=== PATIENT | male | born 1970 | race Caucasian/White ===

== ENCOUNTER → 2016-07-29 | Outpatient (REF) | payer BC ==
--- NOTE | 2016-07-29 07:23 | PFTRPT ---
PULMONARY FUNCTION REPORT ORDERING PROVIDER: EVELYN Estrada DATE OF SERVICE: 07/29/16 SPIROMETRY: Excellent technical quality. The forced vital capacity is normal. The FEV1 is in proportion. The obstructive index is, therefore, normal. FLOW VOLUME LOOP: The expiratory limb of the flow volume loop is normal. LUNG VOLUMES: The total lung capacity is normal. The residual volume is generally in proportion. DIFFUSION CAPACITY: The diffusion capacity is normal. HEMOGLOBIN: No hemoglobin is available for correction. AIRWAY MECHANICS: Airways resistance and conductance are normal. IMPRESSION: Normal study. MTDD
== END ==
LOC: M CARPUL 06:57 → EDSTATUS 08:41
PROVIDERS: ATTEND Nurse Practitioner Adult Health
DX: R06.89 Other abnormalities of breathing (principal)

== ENCOUNTER → 2017-02-02 | Outpatient (CLI) | payer BC ==
[2017-02-02 17:04] LABS: ALBUMIN 4.1 GM/DL (3.2-5.2); ALBUMIN/GLOBULIN RATIO 1.17 (1.00-1.93); ALKALINE PHOSPHATASE 76 U/L (45-117); ALT/SGPT 50 U/L (12-78); ANION GAP 7 MEQ/L (8-16); AST/SGOT 17 U/L (15-37); BILIRUBIN,TOTAL 0.5 MG/DL (0.2-1.0); BLOOD UREA NITROGEN 17 MG/DL (7-18); CARBON DIOXIDE LEVEL 28 MEQ/L (21-32); CHLORIDE LEVEL 105 MEQ/L (98-107); CHOLESTEROL LEVEL 206 MG/DL (<200); CREATININE FOR GFR 0.99 MG/DL (0.70-1.30); GLOMERULAR FILTRATION RATE > 60.0 (>60); GLUCOSE, FASTING 85 MG/DL (70-105); POTASSIUM SERUM 4.9 MEQ/L (3.5-5.1); SODIUM LEVEL 140 MEQ/L (136-145); TOTAL PROTEIN 7.6 GM/DL (6.4-8.2); TRIGLYCERIDES LEVEL 123 MG/DL (<150)
== END ==
LOC: M WUC 11:14
PROVIDERS: ATTEND Physician Assistant Medical
DX: E78.5 Hyperlipidemia, unspecified (principal)

== ENCOUNTER → 2017-07-14 | Outpatient (REF) | LOC: M CARPUL 09:12 | DX: Z00.00 Encounter for general adult medical examination without abnormal findings (principal) ==

== ENCOUNTER 2017-07-20 06:03 | Inpatient (IN) | payer BC ==
[2017-07-20 07:08] LABS: BASO % 0.5 % (0.0-1.0); EOS # 0.3 10^3/uL (0.0-0.50); EOS % 3.3 % (0.0-3.0); HEMATOCRIT 47.4 % (42.0-52.0); IMMATURE GRANULOCYTE % 0.5 % (0-3.0); LYMPH # 1.8 10^3/uL (1.5-4.5); MEAN CORPUSCULAR HEMOGLOBIN 32.9 pg (27.0-33.0); MEAN CORPUSCULAR HGB CONC 35.9 g/dl (32.0-36.5); MEAN CORPUSCULAR VOLUME 91.9 fl (80.0-96.0); MONO # 0.7 10^3/uL (0.0-0.8); MONO % 7.8 % (0.0-5.0); NEUTROPHILS # 5.6 10^3/uL (1.8-7.7); NEUTROPHILS % 66.9 % (36.0-66.0); PLATELET COUNT, AUTOMATED 188 10^3/uL (150-450); RED BLOOD COUNT 5.16 10^6/uL (4.30-6.10); RED CELL DISTRIBUTION WIDTH 12.2 % (11.5-14.5); WHITE BLOOD COUNT 8.4 10^3/uL (4.0-10.0)
[2017-07-20 07:31] LABS: NT-PRO BNP 23 PG/ML (<125)
[2017-07-20] MEDS: TELMISARTAN 20 MG TAB PO (07:44)
[2017-07-20 08:04] LABS: ALBUMIN 3.7 GM/DL (3.2-5.2); ALBUMIN/GLOBULIN RATIO 0.95 (1.00-1.93); ALKALINE PHOSPHATASE 69 U/L (45-117); ALT/SGPT 45 U/L (12-78); ANION GAP 6 MEQ/L (8-16); AST/SGOT 20 U/L (7-37); BILIRUBIN,DIRECT 0.1 MG/DL (0.0-0.2); BILIRUBIN,TOTAL 0.4 MG/DL (0.2-1.0); BLOOD UREA NITROGEN 20 MG/DL (7-18); CALCIUM LEVEL 8.8 MG/DL (8.5-10.1); CARBON DIOXIDE LEVEL 25 MEQ/L (21-32); CHLORIDE LEVEL 109 MEQ/L (98-107); CPK CREATINE PHOSPHOKINASE 139 U/L (39-308); GLOMERULAR FILTRATION RATE > 60.0 (>60); GLUCOSE, FASTING 113 MG/DL (70-100); LIPASE 149 U/L (73-393); POTASSIUM SERUM 4.3 MEQ/L (3.5-5.1); SODIUM LEVEL 140 MEQ/L (136-145); TOTAL PROTEIN 7.6 GM/DL (6.4-8.2); TROPONIN I 0.04 NG/ML (< 0.10)
[2017-07-20 08:05] LABS: CK-MB VALUE MASS 2.7 NG/ML (<3.6); MB/CK RELATIVE INDEX 1.94 (< OR =4)
[2017-07-20] MEDS ORDERED: ISOVUE-370 76% 100ML VIAL (Q9967) As Ordered (08:11)
[2017-07-20 08:23] LABS: INR 0.92; PROTHROMBIN TIME 12.4 SECONDS (12.4-14.5)
[2017-07-20 08:24] LABS: PARTIAL THROMBOPLASTIN TIME 28.9 SECONDS (26.8-37.9)
[2017-07-20 10:11] LABS: DRVV SCREEN 36.4 SEC
[2017-07-20 10:16] LABS: PTT LUPUS TYPE ANTICOAG SCREEN 0.9 (0-1.2)
[2017-07-20] MEDS: HEPARIN DRIP 25,000 UNITS in APPROPRIATE DILUENT 1 EA IV (10:47)
[2017-07-20] MEDS: ACETAMINOPHEN TAB 650MG DOSE (2X325MG) PO ×2 (13:34→22:31)
[2017-07-20 14:40] LABS: PARTIAL THROMBOPLASTIN TIME 28.4 SECONDS (26.8-37.9)
[2017-07-20 17:32] LABS: PARTIAL THROMBOPLASTIN TIME 38.2 SECONDS (26.8-37.9)
[2017-07-20] MEDS: HEPARIN SOD (PORCINE) 5000 UNITS/ML VIAL IV (17:57)
[2017-07-21 00:18] LABS: PARTIAL THROMBOPLASTIN TIME 88.5 SECONDS (26.8-37.9)
[2017-07-21] MEDS: HEPARIN DRIP 25,000 UNITS in APPROPRIATE DILUENT 1 EA IV (01:28)
[2017-07-21 06:40] LABS: HEMATOCRIT 48.2 % (42.0-52.0); HEMOGLOBIN 16.6 g/dl (14.0-18.0); MEAN CORPUSCULAR HEMOGLOBIN 31.1 pg (27.0-33.0); MEAN CORPUSCULAR HGB CONC 34.4 g/dl (32.0-36.5); MEAN CORPUSCULAR VOLUME 90.3 fl (80.0-96.0); PLATELET COUNT, AUTOMATED 176 10^3/uL (150-450); RED BLOOD COUNT 5.34 10^6/uL (4.30-6.10); RED CELL DISTRIBUTION WIDTH 12.5 % (11.5-14.5); WHITE BLOOD COUNT 10.4 10^3/uL (4.0-10.0)
[2017-07-21 06:51] LABS: PARTIAL THROMBOPLASTIN TIME 62.8 SECONDS (26.8-37.9)
[2017-07-21] MEDS: HEPARIN SOD (PORCINE) 5000 UNITS/ML VIAL IV ×2 (06:58→20:02)
[2017-07-21 07:03] LABS: ANION GAP 6 MEQ/L (8-16); BLOOD UREA NITROGEN 14 MG/DL (7-18); CALCIUM LEVEL 8.9 MG/DL (8.5-10.1); CARBON DIOXIDE LEVEL 27 MEQ/L (21-32); CHLORIDE LEVEL 109 MEQ/L (98-107); CREATININE FOR GFR 1.07 MG/DL (0.70-1.30); GLOMERULAR FILTRATION RATE > 60.0 (>60); GLUCOSE, FASTING 106 MG/DL (70-100); MAGNESIUM LEVEL 2.2 MG/DL (1.8-2.4); POTASSIUM SERUM 4.5 MEQ/L (3.5-5.1); SODIUM LEVEL 142 MEQ/L (136-145)
[2017-07-21] MEDS: TELMISARTAN 20 MG TAB PO (08:34)
[2017-07-21 13:06] LABS: PARTIAL THROMBOPLASTIN TIME 77.3 SECONDS (26.8-37.9)
[2017-07-21 19:07] LABS: PARTIAL THROMBOPLASTIN TIME 64.3 SECONDS (26.8-37.9)
[2017-07-21] MEDS: FLUTICASONE PROP 0.05% NASAL SPRAY 16 GM (FLONASE) (19:37)
[2017-07-22 00:47] LABS: INR 0.99; PROTHROMBIN TIME 13.2 SECONDS (12.4-14.5)
[2017-07-22 00:49] LABS: PARTIAL THROMBOPLASTIN TIME 112.7 SECONDS (26.8-37.9)
[2017-07-22] MEDS: HEPARIN DRIP 25,000 UNITS in APPROPRIATE DILUENT 1 EA IV ×2 (06:16→17:50)
[2017-07-22 08:06] LABS: HEMOGLOBIN 16.6 g/dl (14.0-18.0); MEAN CORPUSCULAR HEMOGLOBIN 31.4 pg (27.0-33.0); MEAN CORPUSCULAR HGB CONC 35.3 g/dl (32.0-36.5); PLATELET COUNT, AUTOMATED 172 10^3/uL (150-450); RED BLOOD COUNT 5.28 10^6/uL (4.30-6.10); RED CELL DISTRIBUTION WIDTH 12.3 % (11.5-14.5); WHITE BLOOD COUNT 8.7 10^3/uL (4.0-10.0)
[2017-07-22] MEDS: TELMISARTAN 20 MG TAB PO (08:09)
[2017-07-22 08:16] LABS: INR 0.94; PROTHROMBIN TIME 12.7 SECONDS (12.4-14.5)
[2017-07-22 08:18] LABS: PARTIAL THROMBOPLASTIN TIME 81.1 SECONDS (26.8-37.9)
[2017-07-22 08:25] LABS: ANION GAP 8 MEQ/L (8-16); BLOOD UREA NITROGEN 16 MG/DL (7-18); CALCIUM LEVEL 8.7 MG/DL (8.5-10.1); CARBON DIOXIDE LEVEL 22 MEQ/L (21-32); CHLORIDE LEVEL 111 MEQ/L (98-107); GLOMERULAR FILTRATION RATE > 60.0 (>60); GLUCOSE, FASTING 154 MG/DL (70-100); MAGNESIUM LEVEL 2.1 MG/DL (1.8-2.4); POTASSIUM SERUM 4.2 MEQ/L (3.5-5.1); SODIUM LEVEL 141 MEQ/L (136-145)
[2017-07-22 14:24] LABS: PARTIAL THROMBOPLASTIN TIME 76.1 SECONDS (26.8-37.9)
[2017-07-23 05:56] LABS: HEMATOCRIT 45.3 % (42.0-52.0); HEMOGLOBIN 15.8 g/dl (13.5-17.5); MEAN CORPUSCULAR HGB CONC 34.9 g/dl (32.0-36.5); MEAN CORPUSCULAR VOLUME 88.8 fl (80.0-96.0); PLATELET COUNT, AUTOMATED 173 10^3/uL (150-450); RED CELL DISTRIBUTION WIDTH 12.2 % (11.5-14.5)
[2017-07-23 06:09] LABS: PARTIAL THROMBOPLASTIN TIME 99.3 SECONDS (26.8-37.9)
[2017-07-23 06:17] LABS: ANION GAP 4 MEQ/L (8-16); BLOOD UREA NITROGEN 15 MG/DL (7-18); CALCIUM LEVEL 8.6 MG/DL (8.5-10.1); CARBON DIOXIDE LEVEL 27 MEQ/L (21-32); CHLORIDE LEVEL 110 MEQ/L (98-107); CREATININE FOR GFR 1.05 MG/DL (0.70-1.30); GLOMERULAR FILTRATION RATE > 60.0 (>60); GLUCOSE, FASTING 102 MG/DL (70-100); MAGNESIUM LEVEL 2.3 MG/DL (1.8-2.4); POTASSIUM SERUM 4.1 MEQ/L (3.5-5.1); SODIUM LEVEL 141 MEQ/L (136-145)
[2017-07-23] MEDS: HEPARIN DRIP 25,000 UNITS in APPROPRIATE DILUENT 1 EA IV ×2 (07:01→18:29)
[2017-07-23] MEDS ORDERED: APIXABAN 5 MG TAB (ELIQUIS) PO (09:00)
[2017-07-23] MEDS ORDERED: HEPARIN DRIP 25,000 UNITS in APPROPRIATE DILUENT 1 EA IV (09:06)
[2017-07-23] MEDS ORDERED: HEPARIN SOD (PORCINE) 5000 UNITS/ML VIAL IV (09:15)
[2017-07-23] MEDS: TELMISARTAN 20 MG TAB PO (10:03)
[2017-07-24 00:07] LABS: ANTINUCLEAR ANTIBODIES DIRECT Negative (Negative); HOMOCYST(E)INE SERUM 9.9 umol/L (0.0-15.0); SJOGREN'S ANTI SS-A <0.2 AI (0.0-0.9); SJOGREN'S ANTI SS-B <0.2 AI (0.0-0.9)
[2017-07-24 05:43] LABS: HEMATOCRIT 45.1 % (42.0-52.0); HEMOGLOBIN 15.8 g/dl (13.5-17.5); MEAN CORPUSCULAR HEMOGLOBIN 31.3 pg (27.0-33.0); MEAN CORPUSCULAR VOLUME 89.3 fl (80.0-96.0); PLATELET COUNT, AUTOMATED 180 10^3/uL (150-450); RED BLOOD COUNT 5.05 10^6/uL (4.30-6.10); RED CELL DISTRIBUTION WIDTH 12.3 % (11.5-14.5); WHITE BLOOD COUNT 7.1 10^3/uL (4.0-10.0)
[2017-07-24 05:55] LABS: PARTIAL THROMBOPLASTIN TIME 101.5 SECONDS (26.8-37.9)
[2017-07-24 06:01] LABS: ANION GAP 4 MEQ/L (8-16); BLOOD UREA NITROGEN 15 MG/DL (7-18); CALCIUM LEVEL 8.8 MG/DL (8.5-10.1); CARBON DIOXIDE LEVEL 25 MEQ/L (21-32); CHLORIDE LEVEL 112 MEQ/L (98-107); CREATININE FOR GFR 1.04 MG/DL (0.70-1.30); GLOMERULAR FILTRATION RATE > 60.0 (>60); GLUCOSE, FASTING 95 MG/DL (70-100); MAGNESIUM LEVEL 2.2 MG/DL (1.8-2.4); POTASSIUM SERUM 4.3 MEQ/L (3.5-5.1); SODIUM LEVEL 141 MEQ/L (136-145)
[2017-07-24] MEDS: TELMISARTAN 20 MG TAB PO (08:32)
[2017-07-24] MEDS: HEPARIN DRIP 25,000 UNITS in APPROPRIATE DILUENT 1 EA IV ×2 (08:34→20:01)
[2017-07-24] MEDS: FLUTICASONE PROP 0.05% NASAL SPRAY 16 GM (FLONASE) (20:03)
[2017-07-25 06:02] LABS: HEMATOCRIT 47.1 % (42.0-52.0); HEMOGLOBIN 16.6 g/dl (13.5-17.5); MEAN CORPUSCULAR HEMOGLOBIN 31.9 pg (27.0-33.0); MEAN CORPUSCULAR HGB CONC 35.2 g/dl (32.0-36.5); MEAN CORPUSCULAR VOLUME 90.6 fl (80.0-96.0); PLATELET COUNT, AUTOMATED 194 10^3/uL (150-450); RED CELL DISTRIBUTION WIDTH 12.2 % (11.5-14.5); WHITE BLOOD COUNT 7.8 10^3/uL (4.0-10.0)
[2017-07-25 06:16] LABS: PARTIAL THROMBOPLASTIN TIME 89.8 SECONDS (26.8-37.9)
[2017-07-25 06:22] LABS: ANION GAP 6 MEQ/L (8-16); BLOOD UREA NITROGEN 14 MG/DL (7-18); CALCIUM LEVEL 9.2 MG/DL (8.5-10.1); CARBON DIOXIDE LEVEL 25 MEQ/L (21-32); CHLORIDE LEVEL 109 MEQ/L (98-107); CREATININE FOR GFR 1.03 MG/DL (0.70-1.30); GLOMERULAR FILTRATION RATE > 60.0 (>60); GLUCOSE, FASTING 88 MG/DL (70-100); MAGNESIUM LEVEL 2.3 MG/DL (1.8-2.4); POTASSIUM SERUM 4.2 MEQ/L (3.5-5.1); SODIUM LEVEL 140 MEQ/L (136-145)
[2017-07-25] MEDS: TELMISARTAN 20 MG TAB PO (10:03)
[2017-07-25] MEDS: HEPARIN DRIP 25,000 UNITS in APPROPRIATE DILUENT 1 EA IV ×2 (10:05→23:31)
[2017-07-25] MEDS: FLUTICASONE PROP 0.05% NASAL SPRAY 16 GM (FLONASE) (20:31)
[2017-07-26 05:37] LABS: MEAN CORPUSCULAR HEMOGLOBIN 30.8 pg (27.0-33.0); MEAN CORPUSCULAR HGB CONC 34.8 g/dl (32.0-36.5); MEAN CORPUSCULAR VOLUME 88.5 fl (80.0-96.0); PLATELET COUNT, AUTOMATED 201 10^3/uL (150-450); RED CELL DISTRIBUTION WIDTH 12.2 % (11.5-14.5); WHITE BLOOD COUNT 7.6 10^3/uL (4.0-10.0)
[2017-07-26 05:52] LABS: PARTIAL THROMBOPLASTIN TIME 105.6 SECONDS (26.8-37.9)
[2017-07-26 06:01] LABS: ANION GAP 7 MEQ/L (8-16); BLOOD UREA NITROGEN 15 MG/DL (7-18); CARBON DIOXIDE LEVEL 24 MEQ/L (21-32); CHLORIDE LEVEL 108 MEQ/L (98-107); CREATININE FOR GFR 1.08 MG/DL (0.70-1.30); GLOMERULAR FILTRATION RATE > 60.0 (>60); GLUCOSE, FASTING 97 MG/DL (70-100); MAGNESIUM LEVEL 2.4 MG/DL (1.8-2.4); POTASSIUM SERUM 4.4 MEQ/L (3.5-5.1); SODIUM LEVEL 139 MEQ/L (136-145)
[2017-07-26] MEDS: TELMISARTAN 20 MG TAB PO (08:10)
[2017-07-26 12:33] LABS: PARTIAL THROMBOPLASTIN TIME 94.8 SECONDS (26.8-37.9)
[2017-07-26] MEDS: FLUTICASONE PROP 0.05% NASAL SPRAY 16 GM (FLONASE) (19:55)
[2017-07-27 00:07] LABS: ANTI THROMBIN 3 ANTIGEN IMMUNO 93 % (72-124); ANTI THROMBIN 3 FUNCT ACTIVITY 119 % (75-135); CARDIOLIPIN IGA ANTIBODY <9 APL U/mL (0-11); CARDIOLIPIN IGG ANTIBODY <9 GPL U/mL (0-14); CARDIOLIPIN IGM ANTIBODY 15 MPL U/mL (0-12); PROTEIN C FUNCTIONAL ACTIVITY 115 % (73-180); PROTEIN S FUNCTIONAL ACTIVITY 118 % (63-140)
[2017-07-27 00:07] LABS: PHOSPHOLIPIDS LEVEL 219 mg/dL (150-250)
[2017-07-27] MEDS: HEPARIN DRIP 25,000 UNITS in APPROPRIATE DILUENT 1 EA IV (00:20)
[2017-07-27 05:44] LABS: HEMATOCRIT 44.3 % (42.0-52.0); HEMOGLOBIN 16.3 g/dl (13.5-17.5); MEAN CORPUSCULAR HEMOGLOBIN 33.8 pg (27.0-33.0); MEAN CORPUSCULAR VOLUME 91.9 fl (80.0-96.0); PLATELET COUNT, AUTOMATED 196 10^3/uL (150-450); RED BLOOD COUNT 4.82 10^6/uL (4.30-6.10); RED CELL DISTRIBUTION WIDTH 12.5 % (11.5-14.5); WHITE BLOOD COUNT 8.4 10^3/uL (4.0-10.0)
[2017-07-27 05:48] LABS: ANION GAP 5 MEQ/L (8-16); BLOOD UREA NITROGEN 17 MG/DL (7-18); CARBON DIOXIDE LEVEL 28 MEQ/L (21-32); CHLORIDE LEVEL 107 MEQ/L (98-107); CREATININE FOR GFR 1.13 MG/DL (0.70-1.30); GLOMERULAR FILTRATION RATE > 60.0 (>60); GLUCOSE, FASTING 93 MG/DL (70-100); MAGNESIUM LEVEL 2.1 MG/DL (1.8-2.4); POTASSIUM SERUM 4.5 MEQ/L (3.5-5.1); SODIUM LEVEL 140 MEQ/L (136-145)
[2017-07-27 05:50] LABS: PARTIAL THROMBOPLASTIN TIME 120.5 SECONDS (26.8-37.9)
[2017-07-27 05:51] LABS: MEAN CORPUSCULAR HGB CONC 36.8 g/dl (32.0-36.5)
[2017-07-27] MEDS: TELMISARTAN 20 MG TAB PO (08:20)
[2017-07-27 13:42] LABS: PARTIAL THROMBOPLASTIN TIME 36.4 SECONDS (26.8-37.9)
== END 2017-07-27 15:30 | disposition home or self-care (01) | DRG 134 ==
LOC: M PCU 07-21 21:35 → M ED 06:03 → M ED INP 10:13 → M ICU 13:15
DX: I26.09 Other pulmonary embolism with acute cor pulmonale (principal); I44.1 Atrioventricular block, second degree; I10 Essential (primary) hypertension; I82.411 Acute embolism and thrombosis of right femoral vein; K21.9 Gastro-esophageal reflux disease without esophagitis; R06.83 Snoring; R91.8 Other nonspecific abnormal finding of lung field; Z87.891 Personal history of nicotine dependence; Z79.899 Other long term (current) drug therapy

== ENCOUNTER → 2017-10-26 | Outpatient (CLI) | payer BC | LOC: M RAD 16:48 | DX: R91.8 Other nonspecific abnormal finding of lung field (principal) | CPT/HCPCS: 71250 ==

== ENCOUNTER 2017-11-03 06:39 | Emergency (ER) | payer BC | END 2017-11-03 08:42 | disposition home or self-care (01) | LOC: M ED 06:39 | DX: I82.411 Acute embolism and thrombosis of right femoral vein (principal); Z86.711 Personal history of pulmonary embolism; Z79.899 Other long term (current) drug therapy; Z79.01 Long term (current) use of anticoagulants | CPT/HCPCS: 93971 ==

== ENCOUNTER → 2017-11-04 | Outpatient (CLI) | payer BC ==
[2017-11-04 08:51] LABS: ALBUMIN 3.9 GM/DL (3.2-5.2); ANION GAP 9 MEQ/L (8-16); BLOOD UREA NITROGEN 23 MG/DL (7-18); CALCIUM LEVEL 9.2 MG/DL (8.5-10.1); CARBON DIOXIDE LEVEL 26 MEQ/L (21-32); CHLORIDE LEVEL 106 MEQ/L (98-107); CREATININE FOR GFR 1.09 MG/DL (0.70-1.30); GLOMERULAR FILTRATION RATE > 60.0 (>60); GLUCOSE, FASTING 111 MG/DL (70-100); MAGNESIUM LEVEL 2.2 MG/DL (1.8-2.4); PHOSPHORUS LEVEL 3.4 MG/DL (2.5-4.9); POTASSIUM SERUM 4.7 MEQ/L (3.5-5.1); SODIUM LEVEL 141 MEQ/L (136-145)
== END ==
LOC: M LAB 07:19
DX: I10 Essential (primary) hypertension (principal)
CPT/HCPCS: 83735

== ENCOUNTER → 2017-12-09 | Outpatient (CLI) | payer BC | LOC: M SLEEP HO 09:40 | DX: G47.30 Sleep apnea, unspecified (principal) | CPT/HCPCS: G0399 ==

== ENCOUNTER → 2018-02-07 | Outpatient (CLI) | payer BC | LOC: M RAD 13:59 | DX: I82.491 Acute embolism and thrombosis of other specified deep vein of right lower extremity (principal) | CPT/HCPCS: 93970 ==

== ENCOUNTER → 2018-02-25 | Outpatient (CLI) | payer BC | LOC: M SLEEP 19:56 | DX: G47.33 Obstructive sleep apnea (adult) (pediatric) (principal) | CPT/HCPCS: 95811 ==

== ENCOUNTER → 2018-03-05 | Outpatient (CLI) | payer BC ==
[2018-03-05 18:27] LABS: ALBUMIN 3.9 GM/DL (3.2-5.2); ALBUMIN/GLOBULIN RATIO 1.22 (1.00-1.93); ALKALINE PHOSPHATASE 60 U/L (45-117); ALT/SGPT 46 U/L (12-78); ANION GAP 10 MEQ/L (8-16); AST/SGOT 23 U/L (7-37); BILIRUBIN,TOTAL 0.7 MG/DL (0.2-1.0); BLOOD UREA NITROGEN 14 MG/DL (7-18); CALCIUM LEVEL 8.7 MG/DL (8.5-10.1); CARBON DIOXIDE LEVEL 23 MEQ/L (21-32); CHLORIDE LEVEL 106 MEQ/L (98-107); CHOLESTEROL LEVEL 202 MG/DL (<200); CHOLESTEROL RISK RATIO 4.926 (<5); CREATININE FOR GFR 1.09 MG/DL (0.70-1.30); GLOMERULAR FILTRATION RATE > 60.0 (>60); GLUCOSE, FASTING 82 MG/DL (70-100); HDL CHOLESTEROL 41 MG/DL (>40); LDL CHOLESTEROL 140 MG/DL (<100); NON-HDL-C 161 MG/DL; POTASSIUM SERUM 4.3 MEQ/L (3.5-5.1); PSA SCREENING 0.9 NG/ML (< 4.0); SODIUM LEVEL 139 MEQ/L (136-145); TOTAL PROTEIN 7.1 GM/DL (6.4-8.2); TRIGLYCERIDES LEVEL 106 MG/DL (<150)
[2018-03-05 18:50] LABS: BASO % 0.6 % (0.0-1.0); EOS # 0.1 10^3/uL (0.0-0.50); EOS % 0.9 % (0.0-3.0); HEMATOCRIT 47.5 % (42.0-52.0); HEMOGLOBIN 16.5 g/dl (13.5-17.5); IMMATURE GRANULOCYTE % 0.5 % (0-3.0); LYMPH # 1.5 10^3/uL (1.5-4.5); LYMPH % 22.8 % (24.0-44.0); MEAN CORPUSCULAR HEMOGLOBIN 31.8 pg (27.0-33.0); MEAN CORPUSCULAR HGB CONC 34.7 g/dl (32.0-36.5); MEAN CORPUSCULAR VOLUME 91.5 fl (80.0-96.0); MONO # 0.5 10^3/uL (0.0-0.8); MONO % 7.2 % (0.0-5.0); NEUTROPHILS # 4.3 10^3/uL (1.8-7.7); PLATELET COUNT, AUTOMATED 227 10^3/uL (150-450); RED BLOOD COUNT 5.19 10^6/uL (4.30-6.10); WHITE BLOOD COUNT 6.4 10^3/uL (4.0-10.0)
== END ==
LOC: M WUC 13:23
DX: Z12.5 Encounter for screening for malignant neoplasm of prostate (principal); E78.5 Hyperlipidemia, unspecified; I10 Essential (primary) hypertension
CPT/HCPCS: 80053

== ENCOUNTER → 2018-05-25 | Outpatient (CLI) | payer BC ==
[~2018-05-25] MED LIST: ELIQ5TAB PO; FLUTISP; HYDR12.55 PO; TELM1TAB PO
--- NOTE | 2018-05-25 09:06 | REP ---
Clinical: Follow up abnormal lung findings. Technique: Axial noncontrast images from the thoracic inlet to the upper abdomen with coronal and sagittal re-formations. Comparison: 10/26/2017. Findings: The bilateral lung [place] are relatively symmetric and well-aerated. Minimal apical and medial right middle lobe scarring is again appreciated. Very subtle residual ground-glass opacity at the right base has improved and may represent very subtle atelectasis. No significant consolidation. No effusion or pneumothorax. Previously identified few scattered noncalcified pulmonary nodules are again identified and appear relatively stable when allowing for subtle differences in technique. Specifically, a right lower lobe subpleural nodule (image 61) again measures approximately 9.5 mm diameter and a 3.5 mm nodule in the left lower lobe (image 82) is unchanged. No new nodule or mass lesion appreciated. Evaluation of the mediastinum demonstrates nonspecific subcentimeter lymph nodes. The thoracic aorta is normal. The pulmonary vasculature appears normal. The heart and pericardium are grossly unremarkable and stable. No pericardial effusion or cardiomegaly. Surrounding musculoskeletal structures are intact. Limited upper abdomen demonstrates normal bilateral adrenal glands and evidence for prior left nephrectomy. Impression: 1. Previously identified scattered noncalcified pulmonary nodules remain essentially stable through 07/20/2017. 2. No acute mediastinal or pleuroparenchymal process appreciated. Electronically Signed by Louie Langston MD 05/25/2018 08:57 A
== END ==
LOC: M RAD 06:49
PROVIDERS: ATTEND Internal Medicine Pulmonary Disease
DX: R91.8 Other nonspecific abnormal finding of lung field (principal)

== ENCOUNTER → 2018-07-29 | Outpatient (REF) ==
--- NOTE | 2018-07-29 08:14 | PFTRPT ---
Height: 67.50 Inches Weight: 200.00 Lbs BSA: 2.03 Diagnosis: [employer]EE [employer] DATE OF PROCEDURE: 07/29/2018 ORDERED BY: EVELYN Estrada Spirometry: Study of excellent technical quality. Forced vital capacity normal. FEV1 in proportion. Obstructive index is, therefore, normal. Flow Volume Loop: Expiratory limb of the flow volume loop is normal. Lung Volumes: Total lung capacity normal. Residual volume is in proportion. Diffusing Capacity: Diffusing capacity is mildly reduced but is appropriate for alveolar volume. Hemoglobin: No hemoglobin available for correction. Airway Mechanics: Airway resistance and conductance are normal. IMPRESSION: Mild reduction in the absolute diffusing capacity requires clinical correlation. MTDD
== END ==
LOC: M CARPUL 07:45 → EDSTATUS 08:00
PROVIDERS: ATTEND Nurse Practitioner Adult Health
DX: Z02.89 Encounter for other administrative examinations (principal)

== ENCOUNTER 2018-10-02 13:41 | Emergency (ER) | payer BC ==
[~2018-10-02] VITALS: Ht 170.2 cm; Wt 91.4 kg
[2018-10-02 13:42] VITALS: BP 167/95
[2018-10-02] MEDS ORDERED: TELM1TAB (13:48)
[2018-10-02] MEDS ORDERED: CHLO125TA (13:48)
[2018-10-02] MEDS ORDERED: PERCOCET 5MG/325MG TAB PO ONE (14:45)
== END 2018-10-02 14:38 | disposition home or self-care (01) ==
LOC: M ED 13:41
DX: K02.9 Dental caries, unspecified (principal); K13.79 Other lesions of oral mucosa; Z87.891 Personal history of nicotine dependence; Z79.01 Long term (current) use of anticoagulants; Z79.899 Other long term (current) drug therapy

== ENCOUNTER → 2018-12-03 | Outpatient (CLI) | payer BC ==
[~2018-12-03] MED LIST changes: +CHLO125TA; +TELM1TAB
[2018-12-03 11:33] LABS: ALT/SGPT 40 U/L (12-78); BILIRUBIN,TOTAL 0.5 MG/DL (0.2-1.0); BLOOD UREA NITROGEN 17 MG/DL (7-18); CALCIUM LEVEL 9.2 MG/DL (8.5-10.1); CARBON DIOXIDE LEVEL 27 MEQ/L (21-32); CHLORIDE LEVEL 109 MEQ/L (98-107); CHOLESTEROL LEVEL 203 MG/DL (<200); CHOLESTEROL RISK RATIO 4.511 (<5); CREATININE FOR GFR 1.06 MG/DL (0.70-1.30); GLOMERULAR FILTRATION RATE > 60.0 (>60); GLUCOSE, FASTING 99 MG/DL (70-100); HDL CHOLESTEROL 45 MG/DL (>40); LDL CHOLESTEROL 145 MG/DL (<100); NON-HDL-C 158 MG/DL; POTASSIUM SERUM 4.6 MEQ/L (3.5-5.1); SODIUM LEVEL 141 MEQ/L (136-145); TOTAL PROTEIN 7.2 GM/DL (6.4-8.2); TRIGLYCERIDES LEVEL 66 MG/DL (<150)
[2018-12-03 11:56] LABS: BASO # 0.1 10^3/uL (0.0-0.2); BASO % 0.8 % (0.0-1.0); EOS # 0.1 10^3/uL (0.0-0.50); EOS % 0.8 % (0.0-3.0); HEMOGLOBIN 16.5 g/dl (13.5-17.5); LYMPH # 1.6 10^3/uL (1.5-4.5); LYMPH % 21.8 % (24.0-44.0); MEAN CORPUSCULAR HEMOGLOBIN 32.7 pg (27.0-33.0); MEAN CORPUSCULAR VOLUME 93.1 fl (80.0-96.0); MONO # 0.5 10^3/uL (0.0-0.8); MONO % 6.1 % (0.0-5.0); NEUTROPHILS # 5.1 10^3/uL (1.8-7.7); NEUTROPHILS % 70.1 % (36.0-66.0); PLATELET COUNT, AUTOMATED 293 10^3/uL (150-450); RED BLOOD COUNT 5.05 10^6/uL (4.30-6.10); WHITE BLOOD COUNT 7.3 10^3/uL (4.0-10.0)
[2018-12-03 11:59] LABS: MEAN CORPUSCULAR HGB CONC 35.1 g/dl (32.0-36.5)
== END ==
LOC: M WUC 09:21
PROVIDERS: ATTEND Physician Assistant Medical
DX: I10 Essential (primary) hypertension (principal); E78.5 Hyperlipidemia, unspecified; R73.01 Impaired fasting glucose

== ENCOUNTER → 2018-12-19 | Outpatient (CLI) | payer BC ==
--- NOTE | 2018-12-20 18:35 | REP ---
Clinical: History of chronic embolism. Technique: Real time guevara scale and color Doppler ultrasound examination of the bilateral lower extremities using linear high frequency transducer with reflux evaluation. Findings: Right lower extremity demonstrates nonocclusive thrombus extending from the proximal femoral vein to the popliteal vein. 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 Reflux evaluation to the right lower extremity demonstrates reflux through the deep system including common femoral vein, superficial femoral vein and popliteal vein as well as reflux through the proximal/mid greater saphenous vein. Specifically, proximal greater saphenous vein measures 7.1 mm diameter with reflux duration 2.1 seconds and in the mid greater saphenous vein and measures 6.0 mm diameter with reflux duration 2.0 seconds. Left lower extremity demonstrates nonocclusive thrombus in the distal femoral vein and popliteal vein. Incidental duplication to the distal femoral vein noted. Reflux evaluation to the left lower extremity demonstrates reflux through the deep system including common femoral vein and proximal/mid superficial femoral vein as well as through the greater saphenous vein. Specifically, proximal greater saphenous vein measures 7.5 mm diameter with reflux duration 2.1 seconds, mid greater saphenous vein measures 4.9 mm diameter with reflux duration 1.8 seconds, and distal greater saphenous vein at the knee measures 4.4 mm diameter with reflux duration 1.4 seconds. Impression: 1. Bilateral nonocclusive thrombus. 2. Bilateral reflux. Electronically Signed by Louie Langston MD 12/20/2018 06:27 P
== END ==
LOC: M RAD 09:21
PROVIDERS: ATTEND Physician Assistant
DX: I82.533 Chronic embolism and thrombosis of popliteal vein, bilateral (principal)

== ENCOUNTER → 2019-06-26 | Outpatient (CLI) | payer BC ==
[~2019-06-26] MED LIST changes: -TELM1TAB; -TELM1TAB PO; +TELM1TAB35; +TELM1TAB35 PO
--- NOTE | 2019-06-26 08:49 | REPVR ---
PROCEDURE INFORMATION: Exam: CT Chest Without Contrast Exam date and time: 06/26/2019 8:00 AM Age: 49 years old Clinical indication: Abnormal findings; Lung mass or nodule; Not specified; Additional info: Non specific abnormal finding of lung field TECHNIQUE: Imaging protocol: Computed tomography of the chest without contrast. 3D rendering: MIP and/or 3D reconstructed images were created by the technologist. Radiation optimization: All CT scans at this facility use at least one of these dose optimization techniques: automated exposure control; mA and/or kV adjustment per patient size (includes targeted exams where dose is matched to clinical indication); or iterative reconstruction. COMPARISON: CT Chest without contrast 05/25/2018 6:58 AM FINDINGS: Limitations: There are multiple overlying CT scan artifact. Examination is limited by motion artifact. Trachea: Unremarkable. Lungs: Subpleural nodule in the posterior basal right lower lobe measuring 3.5 x 8.5 mm. Lung nodule in the lateral basal left lower lobe. Series 202, image 82. Mild fibrosis in the right upper lobe. No acute consolidation. Linear atelectasis in the right middle lobe. Stable subpleural ground-glass opacity in the lateral basal right lower lobe. Other stable mild subpleural densities in the right lower lobe. Pleural space: Unremarkable. No pneumothorax. No pleural effusion. Heart: Unremarkable. No cardiomegaly. No pericardial effusion. Aorta: Unremarkable. No aortic aneurysm. Lymph nodes: Unremarkable. No enlarged lymph nodes. Kidneys and ureters: Left kidney is not seen. Bones/joints: Mild degenerative spine. No acute fracture. Soft tissues: Unremarkable. IMPRESSION: 1. Linear atelectasis in the right middle lobe. 2. No acute lung findings otherwise. 3. Lung nodules in the right lower lobe and left lower lobe which are stable for 2 years. Likely benign. No follow-up is necessary. 4. Left kidney is not seen. 5. Additional findings as described. Electronically signed by: Leonela Aguirre On 06/26/2019 08:48:34 AM
== END ==
LOC: M RAD 07:30
PROVIDERS: ATTEND Internal Medicine Pulmonary Disease
DX: J98.11 Atelectasis (principal); R91.8 Other nonspecific abnormal finding of lung field

== ENCOUNTER → 2019-08-07 | Outpatient (REF) | payer BC ==
--- NOTE | 2019-08-07 15:18 | PFTRPT ---
Site: [facility], [address] [place] [address], [id number] ID: [id number] Name: DAVE PIZANO Visit Date: 08/07/2019 Second ID: [id number] Referring Doctor: Amber Craig Reviewing Doctor: Rogers Frey MD Cushion Gum Applicator: Varsha Juárez Age: 49 : 1970 Sex: Male Race: Height: 67.50 Inches Weight: 200.00 Lbs BSA: 2.03 Order IDs: [id number] Requested Test(s): <RESP-PFT.DLCO> Diagnosis: [employer]PL[employer]EE [employer] test meet the ATS standards for acceptability and repeatability. Review Status: Not Reviewed Pre-Bronch Post-Bronch Pred Actual %Pred Actual %Chng SPIROMETRY FVC (L) 4.67 5.02 107 FEV1 (L) 3.64 3.84 105 FEV1/FVC (%) 78 76 97 FEF 25% (L/sec) 7.70 7.17 93 FEF 50% (L/sec) 5.13 4.01 78 FEF 75% (L/sec) 1.67 1.25 74 FEF 25-75% (L/sec) 3.28 3.16 96 FEF Max (L/sec) 9.31 9.03 96 FIVC (L) 4.74 FIF 50% (L/sec) 5.00 3.39 67 FIF Max (L/sec) 4.01 MVV (L/min) 145 138 94 Expiratory Time (sec) 8.15 Back Extrap Vol (L) 0.10 Time To FEFmax (sec) 0.064 LUNG VOLUMES SVC (L) 4.57 5.16 112 IC (L) 3.20 3.13 97 ERV (L) 1.37 2.03 147 TGV (L) 3.25 4.94 152 RV (Pleth) (L) 1.88 2.92 155 TLC (Pleth) (L) 6.45 8.07 125 RV/TLC (Pleth) (%) 29 36 124 DIFFUSION DLCOunc (ml/min/mmHg) 29.86 26.03 87 DLCOcor (ml/min/mmHg) 29.86 25.95 86 DL/VA (ml/min/mmHg/L) 4.63 3.80 82 VA (L) 6.45 6.83 105 BHT (sec) 12.01 IVC (L) 5.03 TLC (SB) (L) 6.98 AIRWAYS RESISTANCE Raw (cmH2O/L/s) 1.45 0.87 59 Gaw (L/s/cmH2O) 1.03 1.17 113 sRaw (cmH2O*s) 4.76 4.28 89 sGaw (1/cmH2O*s) 0.20 0.24 118 BLOOD GASES Hgb (gm/dL) 14.7
--- NOTE | 2019-08-08 15:40 | PULFX ---
DATE OF PROCEDURE: 08/07/2019 ORDERED BY: EVELYN Estrada Spirometry: Excellent technical quality. Forced vital capacity normal. FEV1 in proportion. Obstructive index is, therefore, normal. Flow Volume Loop: Expiratory limb of the flow volume loop is normal. Lung Volumes: Total lung capacity normal. Residual volume is in proportion. Diffusing Capacity: Diffusing capacity normal. Hemoglobin: Hemoglobin acceptable at 14.7. Airway Mechanics: Airway resistance and conductance are normal. IMPRESSION: Normal study.
== END ==
LOC: M CARPUL 14:52 → EDSTATUS 15:00
PROVIDERS: ATTEND Nurse Practitioner Adult Health
DX: Z02.89 Encounter for other administrative examinations (principal)

== ENCOUNTER → 2019-11-07 | Outpatient (CLI) | payer BC ==
--- NOTE | 2019-11-07 15:11 | REP ---
BILATERAL LOWER EXTREMITY DUPLEX DOPPLER VENOUS ULTRASOUND Real-time compression and duplex Doppler interrogation of bilateral lower extremity deep venous system is performed and compared to a prior study of 12/19/2018. Once again, no thrombus is seen in either common femoral vein with both veins fully compressible and no intraluminal thrombus. The right femoral vein is duplicated with chronic thrombus seen in the deepest duplicated femoral vein similar to the prior study. Thrombus is again seen in the popliteal vein which is nonocclusive, extending into the tibioperoneal trunk. Left femoral vein is duplicated distally with chronic thrombus again seen in the deeper duplicated portion, similar to the prior study. IMPRESSION: Stable chronic deep vein thrombosis as discussed in detail above. Electronically Signed by Amador Katz MD 11/08/2019 04:46 P
== END ==
LOC: M RAD 11:24
PROVIDERS: ATTEND Physician Assistant
DX: I82.511 Chronic embolism and thrombosis of right femoral vein (principal); I82.533 Chronic embolism and thrombosis of popliteal vein, bilateral

== ENCOUNTER → 2020-01-13 | Outpatient (CLI) | payer BC, OTHER ==
[2020-01-13 13:51] LABS: ALBUMIN 4.1 GM/DL (3.2-5.2); ALT/SGPT 51 U/L (12-78); BILIRUBIN,TOTAL 0.8 MG/DL (0.2-1.0); BLOOD UREA NITROGEN 20 MG/DL (7-18); CALCIUM LEVEL 9.4 MG/DL (8.5-10.1); CARBON DIOXIDE LEVEL 26 MEQ/L (21-32); CHLORIDE LEVEL 109 MEQ/L (98-107); CHOLESTEROL LEVEL 226 MG/DL (<200); CHOLESTEROL RISK RATIO 4.109 (<5); GLOMERULAR FILTRATION RATE > 60.0 (>60); GLUCOSE, FASTING 97 MG/DL (70-100); HDL CHOLESTEROL 55 MG/DL (>40); LDL CHOLESTEROL 149 MG/DL (<100); NON-HDL-C 171 MG/DL; POTASSIUM SERUM 4.8 MEQ/L (3.5-5.1); SODIUM LEVEL 137 MEQ/L (136-145); TOTAL PROTEIN 7.5 GM/DL (6.4-8.2); TRIGLYCERIDES LEVEL 109 MG/DL (<150)
[2020-01-13 14:34] LABS: BASO # 0.1 10^3/uL (0.0-0.2); BASO % 0.8 % (0.0-1.0); EOS # 0.1 10^3/uL (0.0-0.5); EOS % 1.9 % (0.0-3.0); HEMOGLOBIN 17.3 g/dl (13.5-17.5); LYMPH # 1.9 10^3/uL (1.5-5.0); LYMPH % 31.4 % (24.0-44.0); MEAN CORPUSCULAR HEMOGLOBIN 32.7 pg (27.0-33.0); MEAN CORPUSCULAR VOLUME 94.5 fl (80.0-96.0); MONO # 0.5 10^3/uL (0.0-0.8); MONO % 8.8 % (0.0-5.0); NEUTROPHILS # 3.4 10^3/uL (1.5-8.5); NEUTROPHILS % 56.6 % (36.0-66.0); PLATELET COUNT, AUTOMATED 257 10^3/uL (150-450); RED BLOOD COUNT 5.29 10^6/uL (4.30-6.10); WHITE BLOOD COUNT 5.9 10^3/uL (4.0-10.0)
[2020-01-13 14:49] LABS: MEAN CORPUSCULAR HGB CONC 34.6 g/dl (32.0-36.5)
[2020-01-13 15:10] LABS: HEMOGLOBIN A1c 5.4 %
== END ==
LOC: M WUC 10:47
PROVIDERS: ATTEND Physician Assistant
DX: E78.5 Hyperlipidemia, unspecified (principal); I10 Essential (primary) hypertension; R73.01 Impaired fasting glucose; Z86.711 Personal history of pulmonary embolism

== ENCOUNTER → 2020-08-12 | Outpatient (REF) ==
--- NOTE | 2020-08-12 11:25 | PFTRPT ---
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 Forced vital capacity is normal. FEV1 is in proportion. Obstructive index is therefore normal. Expiratory limit of the flow-volume loop is normal. Bronchodilator response is not tested. Total lung capacity is normal. Residual volume is in proportion. Diffusing capacity is normal. No hemoglobin available for correction. Airway resistance and conductance are normal. IMPRESSION: Normal study. MTDD
== END ==
LOC: M CARPUL 09:32
PROVIDERS: ATTEND Nurse Practitioner Adult Health
DX: Z02.89 Encounter for other administrative examinations (principal)

== ENCOUNTER → 2021-03-03 | Outpatient (CLI) | payer BC, OTHER ==
[2021-03-03 17:39] LABS: ALBUMIN 3.9 GM/DL (3.2-5.2); ALT/SGPT 59 U/L (12-78); BILIRUBIN,TOTAL 0.7 MG/DL (0.2-1.0); BLOOD UREA NITROGEN 16 MG/DL (7-18); CALCIUM LEVEL 9.6 MG/DL (8.5-10.1); CARBON DIOXIDE LEVEL 24 MEQ/L (21-32); CHLORIDE LEVEL 106 MEQ/L (98-107); CHOLESTEROL LEVEL 216 MG/DL (<200); CHOLESTEROL RISK RATIO 5.142 (<5); GLOMERULAR FILTRATION RATE > 60.0 (>56); GLUCOSE, FASTING 80 MG/DL (70-100); HDL CHOLESTEROL 42 MG/DL (>40); LDL CHOLESTEROL 152 MG/DL (<100); NON-HDL-C 174 MG/DL; POTASSIUM SERUM 4.2 MEQ/L (3.5-5.1); SODIUM LEVEL 141 MEQ/L (136-145); TOTAL PROTEIN 7.1 GM/DL (6.4-8.2); TRIGLYCERIDES LEVEL 112 MG/DL (<150)
[2021-03-03 17:50] LABS: HEMOGLOBIN A1c 5.5 %
== END ==
LOC: M WUC 15:36
PROVIDERS: ATTEND Nurse Practitioner Family
DX: Z00.00 Encounter for general adult medical examination without abnormal findings (principal); I10 Essential (primary) hypertension

== ENCOUNTER → 2021-03-03 | Outpatient (CLI) | payer BC, OTHER ==
[2021-03-03 17:38] LABS: ALBUMIN 3.9 GM/DL (3.2-5.2); ALT/SGPT 56 U/L (12-78); BILIRUBIN,TOTAL 0.7 MG/DL (0.2-1.0); BLOOD UREA NITROGEN 16 MG/DL (7-18); CALCIUM LEVEL 9.8 MG/DL (8.5-10.1); CARBON DIOXIDE LEVEL 26 MEQ/L (21-32); CHLORIDE LEVEL 109 MEQ/L (98-107); CHOLESTEROL LEVEL 224 MG/DL (<200); CHOLESTEROL RISK RATIO 5.333 (<5); CREATININE FOR GFR 1.13 MG/DL (0.70-1.30); GLOMERULAR FILTRATION RATE > 60.0 (>56); GLUCOSE, FASTING 78 MG/DL (70-100); HDL CHOLESTEROL 42 MG/DL (>40); LDL CHOLESTEROL 159 MG/DL (<100); NON-HDL-C 182 MG/DL; POTASSIUM SERUM 4.2 MEQ/L (3.5-5.1); SODIUM LEVEL 139 MEQ/L (136-145); TOTAL PROTEIN 7.1 GM/DL (6.4-8.2); TRIGLYCERIDES LEVEL 113 MG/DL (<150)
== END ==
LOC: M WUC 15:38
PROVIDERS: ATTEND Physician Assistant
DX: Z13.220 Encounter for screening for lipoid disorders (principal)

== ENCOUNTER → 2021-04-02 | Outpatient (REF) | LOC: M LABSMTC 09:40 | PROVIDERS: ATTEND Family Medicine | DX: Z11.52 Encounter for screening for COVID-19 (principal) ==

== ENCOUNTER → 2021-08-06 | Outpatient (REF) | LOC: EDSTATUS 08:00 → M CARPUL 08:18 | PROVIDERS: ATTEND Nurse Practitioner Adult Health | DX: Z11.52 Encounter for screening for COVID-19 (principal) ==

== ENCOUNTER → 2021-08-27 | Outpatient (REF) | LOC: M LABSMTC 09:18 | PROVIDERS: ATTEND Family Medicine | DX: Z20.822 Contact with and (suspected) exposure to COVID-19 (principal) ==

== ENCOUNTER 2021-09-23 18:43 | Emergency (ER) | payer BC, OTHER ==
[~2021-09-23] VITALS: Ht 172.7 cm; Wt 96.4 kg
[2021-09-23] MEDS ORDERED: FLUTISP (19:22)
[2021-09-23] MEDS ORDERED: LIDOCAINE 1% MDV 20ML VIAL SC ONE (22:25)
[2021-09-23] MEDS ORDERED: BOOSTRIX/ADACEL VACCINE (DIPHTH/PERTUSS/ACELL/TETANUS) 0.5ML SYR IM ONE (22:55)
[2021-09-23] MEDS ORDERED: ceFAZolin SOD 1 GM in D5W MINI-BAG PLUS 50 ML IV ONE (23:00)
[2021-09-23] MEDS ORDERED: AMOX875T2 PO (23:10)
[2021-09-24 00:11] VITALS: BP 140/83
== END 2021-09-24 00:16 | disposition home or self-care (01) ==
LOC: M ED 18:43
DX: S61.313A Laceration without foreign body of left middle finger with damage to nail, initial encounter (principal); W28.XXXA Contact with powered lawn mower, initial encounter; Y92.018 Other place in single-family (private) house as the place of occurrence of the external cause; I10 Essential (primary) hypertension; Z86.711 Personal history of pulmonary embolism; Z86.718 Personal history of other venous thrombosis and embolism
CPT/HCPCS: 12001; 73140; 90471; 90715; 96365; 99284; J0690

== ENCOUNTER → 2022-02-26 | Outpatient (REF) | payer BC ==
[~2022-02-26] MED LIST changes: +AMOX875T2 PO
[2022-02-26 19:55] LABS: ALBUMIN 3.7 GM/DL (3.2-5.2); ALT/SGPT 40 U/L (12-78); BILIRUBIN,TOTAL 0.6 MG/DL (0.2-1.0); BLOOD UREA NITROGEN 12 MG/DL (7-18); CALCIUM LEVEL 9.2 MG/DL (8.5-10.1); CARBON DIOXIDE LEVEL 27 MEQ/L (21-32); CHLORIDE LEVEL 107 MEQ/L (98-107); CHOLESTEROL LEVEL 180 MG/DL (<200); CHOLESTEROL RISK RATIO 4.864 (<5); CREATININE FOR GFR 1.05 MG/DL (0.70-1.30); GLOMERULAR FILTRATION RATE > 60.0 (>56); GLUCOSE, FASTING 91 MG/DL (70-100); HDL CHOLESTEROL 37 MG/DL (>40); LDL CHOLESTEROL 124 MG/DL (<100); NON-HDL-C 143 MG/DL; POTASSIUM SERUM 4.1 MEQ/L (3.5-5.1); SODIUM LEVEL 140 MEQ/L (136-145); TOTAL PROTEIN 7.1 GM/DL (6.4-8.2); TRIGLYCERIDES LEVEL 93 MG/DL (<150)
[2022-02-26 20:19] LABS: BASO # 0.1 10^3/uL (0.0-0.2); BASO % 0.8 % (0.0-1.0); EOS # 0.2 10^3/uL (0.0-0.5); EOS % 2.3 % (0.0-3.0); HEMATOCRIT 45.8 % (42.0-52.0); HEMOGLOBIN 15.7 g/dl (13.5-17.5); LYMPH # 2.3 10^3/uL (1.5-5.0); LYMPH % 24.7 % (24.0-44.0); MEAN CORPUSCULAR HEMOGLOBIN 32.1 pg (27.0-33.0); MEAN CORPUSCULAR VOLUME 93.7 fl (80.0-96.0); MONO # 0.7 10^3/uL (0.0-0.8); MONO % 7.7 % (2.0-8.0); NEUTROPHILS % 63.8 % (36.0-66.0); PLATELET COUNT, AUTOMATED 308 10^3/uL (150-450); RED BLOOD COUNT 4.89 10^6/uL (4.30-6.10); WHITE BLOOD COUNT 9.5 10^3/uL (4.0-10.0)
[2022-02-26 20:21] LABS: MEAN CORPUSCULAR HGB CONC 34.3 g/dl (32.0-36.5)
[2022-02-26 20:58] LABS: HEMOGLOBIN A1c 5.7 %
== END ==
LOC: M LABWUC 19:16
PROVIDERS: ATTEND Nurse Practitioner Family
DX: E78.5 Hyperlipidemia, unspecified (principal); I10 Essential (primary) hypertension; R73.01 Impaired fasting glucose; Z86.711 Personal history of pulmonary embolism; Z79.01 Long term (current) use of anticoagulants

== ENCOUNTER → 2023-03-22 | Outpatient (CLI) | payer BC ==
[~2023-03-22] MED LIST changes: +FLUT50SP17; -FLUTISP
[2023-03-22 10:01] LABS: HEMOGLOBIN A1c 5.1 % (4.0-6.0)
[2023-03-22 10:11] LABS: ALBUMIN 3.9 G/DL (3.2-5.2); ALKALINE PHOSPHATASE 61 U/L (46-116); ALT/SGPT 35 U/L (7.0-40); AST/SGOT 21 U/L (<34); BILIRUBIN,TOTAL 0.8 MG/DL (0.3-1.2); BLOOD UREA NITROGEN 17 MG/DL (9-23); CALCIUM LEVEL 9.3 MG/DL (8.5-10.1); CARBON DIOXIDE LEVEL 25 MMOL/L (20-31); CHLORIDE LEVEL 106 MMOL/L (98-107); CHOLESTEROL LEVEL 220 MG/DL (<200); CHOLESTEROL RISK RATIO 4.44 (<5); CREATININE FOR GFR 0.85 MG/DL (0.70-1.30); GLOMERULAR FILTRATION RATE > 60.0 (>56); GLUCOSE, FASTING 104 MG/DL (60-100); HDL CHOLESTEROL 49.5 MG/DL (>40); LDL CHOLESTEROL 145.7 MG/DL (<100); NON-HDL-C 170.5 MG/DL; POTASSIUM SERUM 4.7 MMOL/L (3.5-5.1); SODIUM LEVEL 140 MMOL/L (136-145); TOTAL PROTEIN 6.9 G/DL (5.7-8.2); TRIGLYCERIDES LEVEL 124 MG/DL (<150)
[2023-03-22 10:19] LABS: BASO # 0.1 10^3/uL (0.0-0.2); BASO % 0.9 % (0.0-1.0); EOS # 0.2 10^3/uL (0.0-0.5); HEMOGLOBIN 17.1 g/dl (13.5-17.5); LYMPH # 2.3 10^3/uL (1.5-5.0); LYMPH % 29.2 % (24.0-44.0); MEAN CORPUSCULAR HEMOGLOBIN 33.3 pg (27.0-33.0); MEAN CORPUSCULAR HGB CONC 35.6 g/dl (32.0-36.5); MEAN CORPUSCULAR VOLUME 93.6 fl (80.0-96.0); MONO # 0.5 10^3/uL (0.0-0.8); MONO % 6.4 % (2.0-8.0); NEUTROPHILS # 4.9 10^3/uL (1.5-8.5); PLATELET COUNT, AUTOMATED 265 10^3/uL (150-450); RED BLOOD COUNT 5.13 10^6/uL (4.30-6.10)
== END ==
LOC: M LAB 08:31
PROVIDERS: ATTEND Nurse Practitioner Family
DX: I10 Essential (primary) hypertension (principal); E78.5 Hyperlipidemia, unspecified; R73.01 Impaired fasting glucose; Z86.711 Personal history of pulmonary embolism

== ENCOUNTER → 2023-09-16 | Outpatient (REF) | payer SELFPAY ==
[~2023-09-16] MED LIST changes: -FLUT50SP17; +FLUTISP
== END ==
LOC: M CARPUL 15:01
PROVIDERS: ATTEND Nurse Practitioner Adult Health
DX: Z02.1 Encounter for pre-employment examination (principal)

== ENCOUNTER → 2023-09-16 | Outpatient (REF) | LOC: M CARPUL 15:11 | PROVIDERS: ATTEND Nurse Practitioner Adult Health | DX: Z53.9 Procedure and treatment not carried out, unspecified reason (principal) ==

== ENCOUNTER → 2023-12-01 | Outpatient (REF) | LOC: M EMP 13:53 | PROVIDERS: ATTEND Family Medicine | DX: Z11.52 Encounter for screening for COVID-19 (principal) ==

== ENCOUNTER → 2024-08-22 | Outpatient (CLI) | payer BC ==
[2024-08-22 19:21] LABS: ALKALINE PHOSPHATASE 54 U/L (40-129); ALT/SGPT 36 U/L (7.0-40); AST/SGOT 19 U/L (<34); BILIRUBIN,TOTAL 0.6 MG/DL (0.3-1.2); BLOOD UREA NITROGEN 15 MG/DL (9-23); CALCIUM LEVEL 9.6 MG/DL (8.5-10.1); CARBON DIOXIDE LEVEL 26 MMOL/L (20-31); CHLORIDE LEVEL 106 MMOL/L (98-107); CHOLESTEROL LEVEL 182 MG/DL (<200); CHOLESTEROL RISK RATIO 3.66 (<5); CREATININE FOR GFR 0.89 MG/DL (0.70-1.30); GLOMERULAR FILTRATION RATE > 90.0 (>56); GLUCOSE, FASTING 98 MG/DL (60-100); HDL CHOLESTEROL 49.7 MG/DL (>40); LDL CHOLESTEROL 115.7 MG/DL (<100); NON-HDL-C 132.3 MG/DL; POTASSIUM SERUM 4.6 MMOL/L (3.5-5.1); SODIUM LEVEL 141 MMOL/L (136-145); TOTAL PROTEIN 6.9 G/DL (5.7-8.2); TRIGLYCERIDES LEVEL 83 MG/DL (<150)
[2024-08-22 19:33] LABS: BASO # 0.1 10^3/uL (0.0-0.2); BASO % 0.9 % (0.0-1.0); EOS # 0.1 10^3/uL (0.0-0.5); EOS % 1.5 % (0.0-3.0); HEMATOCRIT 45.6 % (42.0-52.0); HEMOGLOBIN 15.3 g/dl (13.5-17.5); LYMPH # 2.1 10^3/uL (1.5-5.0); LYMPH % 28.4 % (24.0-44.0); MEAN CORPUSCULAR HEMOGLOBIN 32.5 pg (27.0-33.0); MEAN CORPUSCULAR HGB CONC 33.6 g/dl (32.0-36.5); MEAN CORPUSCULAR VOLUME 96.8 fl (80.0-96.0); MONO # 0.5 10^3/uL (0.0-0.8); NEUTROPHILS # 4.7 10^3/uL (1.5-8.5); NEUTROPHILS % 61.8 % (36.0-66.0); PLATELET COUNT, AUTOMATED 260 10^3/uL (150-450); RED BLOOD COUNT 4.71 10^6/uL (4.30-6.10); WHITE BLOOD COUNT 7.5 10^3/uL (4.0-10.0)
== END ==
LOC: M WUC 13:29
PROVIDERS: ATTEND Nurse Practitioner Family
DX: I10 Essential (primary) hypertension (principal); E78.5 Hyperlipidemia, unspecified

== ENCOUNTER → 2024-09-04 | Outpatient (REF) | LOC: M CARPUL 11:00 | PROVIDERS: ATTEND Nurse Practitioner Adult Health | DX: Z00.00 Encounter for general adult medical examination without abnormal findings (principal) ==